=== PATIENT | female | born 1995 | race Caucasian/White ===

== ENCOUNTER 2024-12-30 13:22 | Outpatient (CLI) | payer OTHER, SELFPAY | END 2024-12-30 13:23 | disposition home or self-care (01) | LOC: NFLDREF 12-31 22:09 | DX: R35.0 Frequency of micturition (principal); N39.0 Urinary tract infection, site not specified | CPT/HCPCS: 87086 ==

== ENCOUNTER 2025-04-06 13:24 | Outpatient (CLI) | payer OTHER, SELFPAY | END 2025-04-06 13:25 | disposition home or self-care (01) | LOC: NFLDREF 04-09 12:57 | PROVIDERS: Visit Provider Physician Assistant Surgical | DX: N30.01 Acute cystitis with hematuria (principal); B96.20 Unspecified Escherichia coli [E. coli] as the cause of diseases classified elsewhere | CPT/HCPCS: 87086 ==